=== PATIENT | male | born 1970 | race Asian ===

== ENCOUNTER → 2016-10-15 06:12 | Day surgery (SDC) | payer BC ==
--- NOTE | 2016-10-01 08:03 | HP ---
HISTORY AND PHYSICAL: DATE OF ADMISSION/SURGERY: 10/22/16 [facility] SURGEON: Maki Singh MD (DICTATED BY JANIA HARO) PROCEDURE: Right total knee arthroscopy with possible lateral meniscectomy, possible chondroplasty, possible synovectomy. CHIEF COMPLAINT: Right knee pain. HISTORY OF PRESENT ILLNESS: Mr. Rodriguez is a 46-year-old gentleman with continued complaints of right knee pain. An MRI shows a root tear of the posterior horn of the lateral meniscus as well as the chronic ACL tear, and degenerative osteoarthritis. He would like to proceed with right knee arthroscopy with partial lateral meniscectomy, possible chondroplasty, and possible synovectomy. Surgery is scheduled for 10/22/[address] Singh. PAST MEDICAL HISTORY: Denies. PAST SURGICAL HISTORY: Right knee arthroscopy. CURRENT MEDICATIONS: None. ALLERGIES: None. FAMILY HISTORY: Denies. SOCIAL HISTORY: He is a 46-year-old gentleman. He is . He works as a auto assembly line. He smokes two to three cigarettes a day. He denies use of drugs, uses occasional alcohol. REVIEW OF SYSTEMS: A complete 14-point review of systems was reviewed with the patient and was all negative and noncontributory. PHYSICAL EXAMINATION GENERAL: He is well developed, well nourished. He is in no acute distress. VITAL SIGNS: He stands 5 feet 3 inches tall, weighs 150 pounds. His blood pressure is 102/79, his heart rate is 72. HEENT: Normocephalic, atraumatic. NECK: Supple. No palpable lymph nodes. Trachea is midline. PULMONARY: The lungs are clear to auscultation bilaterally. CARDIO: Regular rate and rhythm. Strong S1 and S2. ABDOMEN: Soft, nontender, and nondistended. MUSCULOSKELETAL: Right lower extremity skin is intact. There are no open wounds or abrasions. He has some tenderness over the lateral right knee. He has got full range of motion. His lower extremity muscle group strengths are intact at 5/5. He has 2+ dorsalis pedis pulses and intact sensation. NEUROLOGIC: He is alert and oriented x3. Cranial nerves II through XII are intact. ASSESSMENT AND PLAN: Mr. Rodriguez is a 46-year-old gentleman with complaints of right knee pain. He is elected to proceed with right knee arthroscopy with partial lateral meniscectomy, possible chondroplasty, possible synovectomy and the surgery is scheduled for 10/22/[address] Singh discussed the risks and benefits of the surgery at today's visit and all of his questions were answered. He will follow up with Dr. Singh 2 weeks after the surgery. JANIA HARO [id number]/[facility] #: [id number] [facility]ITALQu[facility]
[~2016-10-15 06:12] MED LIST: Buffered Lidocaine 0.9% SYRIN* 5 ML/SYR SYRINGE ONE; Bupivacaine 0.5% SDV PF* 30 ML VIAL ONE; Dexamethasone IV* 4 MG/ML 1 ML (4 MG) ONE; EPHEDrine (Pressors)* 50 MG/ML VIAL ONE; EPINEPHrine AMP 1 MG/ML ONE; Famotidine IV* 10 MG/ML 2 ML (20 mg) IV ONE; Famotidine IV* 10 MG/ML 2 ML (20 mg) ONE; HYDROmorphone* 1 MG/ML 1 ML SYR IV PRN; KETAMINE HCL* 50 MG/ML 10 ML VIAL ONE; Ketorolac INJ* 30 MG/ML 1 ML VIAL ONE; Lidocaine 2% PF * 5 ML VIAL ONE; Metoclopramide TAB* 10 MG ONE; Metoclopramide TAB* 10 MG PO ONE; Midazolam* 1 MG/ML 5 ML VIAL (5 MG) ONE; Morphine PF AMP (0.5MG/ML)* 5 MG/10 ML AMP ONE; Ondansetron INJ* 2 MG/ML VIAL IV PRN; Ondansetron INJ* 2 MG/ML VIAL ONE; Propofol* 10 MG/ML 20 ML BTL IV PUSH ONE; ceFAZolin 2 GM PREMIX(*) 2 GM/50 ML BAG IVPB ONE; fentaNYL* 50 MCG/ML 2 ML VIAL (100 MCG VIAL) IV PRN; fentaNYL* 50 MCG/ML 2 ML VIAL (100 MCG VIAL) ONE; methylPREDNISolone ACETATE 80* 80 MG/ML 1 ML VIAL ONE; oxyCODONE/Acetamin 5/325 MG* TAB PO PRN
[2016-10-15 10:26] VITALS: BP 124/77
--- NOTE | 2016-10-16 08:43 | OP ---
DATE OF OPERATION: 10/15/16 - [facility] DATE OF : 68 SURGEON: Maki Singh MD CONTROL PANEL OPERATOR CRUDE UNIT: JANIA Phipps. Ms. Mcneal did help throughout the procedure with preparation of the leg, wound retraction, manipulation of the knee, and wound closure. ANESTHESIOLOGIST: Dr. Yadav. ANESTHESIA: General. PRE-OP DIAGNOSES: Right knee pain with osteoarthritis, lateral meniscal tear. POST-OP DIAGNOSES: Right knee medial meniscal tear, lateral meniscal tear, anterior synovitis, and moderate arthritis in the lateral and patellofemoral compartments. OPERATIVE PROCEDURE: Right knee arthroscopy with partial medial meniscectomy, partial lateral meniscectomy, anterior synovectomy, and lateral chondroplasty. INDICATIONS: Mr. Rodriguez is a 46-year-old gentleman with chronic right knee pain. He has been diagnosed with [id number] osteoarthritis in the past. He had continued pain and decreased quality of life despite conservative treatment with intraarticular injection and physical therapy. An MRI was ordered due to meniscal- type symptoms. He was noted to have a posterior root tear along the lateral meniscus. The patient continued conservative treatment, but his pain was not relieved. He elected to undergo right knee arthroscopy with partial meniscectomy, possible chondroplasty, possible synovectomy. Informed consent was obtained from the patient. He understood the risks of surgery included but were not limited to bleeding, infection, damage to nearby structures, continued pain, need for further surgery, stroke, heart attack, blood clot, and . He wished to proceed. COMPLICATIONS: None. EBL: Less than 25 cc. SPECIMEN: None. INTRAOPERATIVE FINDINGS: Intraoperatively, the patient was noted to have a radial tear in the posterior one-half of the medial meniscus involving the white -red zone. He was noted to have a radial-type tear along the posterolateral horn of the lateral meniscus. He was noted to have large amounts of anterior synovitis. Arthritic changes were noted mainly in the lateral and patellofemoral compartments. These were grade 3 and 4 Outerbridge cartilage changes with a small amount of exposed subchondral bone and cartilage flapping. DESCRIPTION OF PROCEDURE: Mr. Rodriguez was identified in the preanesthesia unit. His right lower extremity was marked as the correct operative side. Informed consent was signed and placed in the chart. The patient was taken to the operating room and placed under general anesthesia without difficulty. Right lower extremity was prepped and draped in the usual sterile fashion. Preop time -out was made to correctly identified the patient's side and site. Appropriate perioperative antibiotics were given within 1 hour of incision. A standard 0.5-cm anterolateral portal incision was made with a 15-blade. The trocar was introduced. As soon as the light and water sources were turned on, there was immediate visualization of the knee joint. It was noted that there were several small pieces of cartilage floating in the joint fluid. The suprapatellar pouch had no obvious abnormality. Patello-femoral compartment showed grade 3 and 4 Outerbridge cartilage changes involving the medial and lateral patellar facet. There was cartilage flapping as well as exposed subchondral bone. Medial gutter showed a large of amount of the anterior synovitis and fibrous tissue. Medial gutter showed no obvious loose body. ACL was absent. PCL was intact. Medial compartment showed minimal degenerative changes. There was a radial-type tear involving the posterior one-half of the medial meniscus. The knee was placed in the figure-of-4 position. Significant amount of grade 3 and 4 Outerbridge cartilage changes were noted along the lateral femoral condyle. A radial-type tear was noted along the posterolateral root of the lateral meniscus. Grade 3 and 4 cartilage changes were noted along the lateral tibial plateau. Lateral gutter had no obvious loose body or plica. Under direct visualization, the medial portal incision was made with a 15- blade. A second tour of the knee joint was performed. No additional findings were noted. Shaver and radiofrequency ablation wand were first used to perform anterior synovectomy. A large amount of inflammatory soft tissue was cleared and there was better visualization of the joint. The inflammatory tissue which impinged with patellofemoral range of motion was also excised. A straight biter was used to perform partial medial meniscectomy in the white-red zone. This was a radial tear involving the posterior one-half of the medial meniscus in the white -red zone. A smooth border was obtained. Further probing of the meniscus showed no additional tears. The knee was placed in the figure-of-4 position. Radiofrequency ablation wand was used to smooth some cartilage flapping. This was done in a conservative fashion. Straight biter and shaver were then used to perform partial lateral meniscectomy along the root of the lateral meniscus and posterolateral corner. The radial tear was excised carefully. Further probing showed no additional tears along the lateral meniscus. This was performed in the white-white and white-red zone. At this time, the knee was copiously irrigated. The shaver was introduced into the suprapatellar pouch and the knee was thoroughly irrigated with multiple liters of sterile saline. This was performed until there was no further cartilage fragments in the joint fluid. All instruments were carefully removed. The incisions were closed using interrupted 3-0 nylon suture. An intraarticular injection of 80 mg of Depo-Medrol and 6 cc of 0.25% Marcaine was placed in the knee joint. Sterile Xeroform, 4x4s, and Webril were placed over the incisions. Shola wrap and cold pack were placed over this. The patient's anesthesia was reversed without difficulty. He was taken to the PACU in stable condition. Intended weightbearing will be weightbearing as tolerated. Intended DVT prophylaxis will be Coumadin with a Lovenox bridge. [id number]/[facility] #: [id number] MIKAEL
== END | disposition home or self-care (01) ==
LOC: OR 06:12
PROVIDERS: ATTEND Orthopaedic Surgery Adult Reconstructive Orthopaedic Surgery
DX: S83.281A Other tear of lateral meniscus, current injury, right knee, initial encounter (principal); S83.241A Other tear of medial meniscus, current injury, right knee, initial encounter; M25.561 Pain in right knee; M17.0 Bilateral primary osteoarthritis of knee; X58.XXXA Exposure to other specified factors, initial encounter; F17.200 Nicotine dependence, unspecified, uncomplicated
CPT/HCPCS: A9270-GY; J0171; J0690; J1040; J1100; J1885; J2250; J2405; J2704; J3010

== ENCOUNTER 2016-10-20 11:26 | Emergency (ER) | payer BC ==
[2016-10-20 11:44] VITALS: BP 122/82
--- NOTE | 2016-10-20 11:54 | UC ---
Shortness of Breath HPI - HPI Summary HPI Summary: complaint of shortness of breath that started 2-3 days ago SOB has worsened over the last day harder to breath when he is ambulating frequent heartburn and chest burning ,ocassional non productive cough recent surgery on right knee- arthroscopic surgery 10/15/16 to fix torn meniscus was taking percocet for pain but stopped it last night d/t constipation no BM for 6 days took senna this morning without relief at this time denies fever - History of Current Complaint Hx Obtained From: Patient Associated Signs & Symptoms: Positive: Cough (Nonproductive) Related History: Recent Trauma - Risk Factors Pulmonary Embolism: Recent Surgery, Smoking Cardiac: Smoking Pseudomonas: Negative <Isabela Carney - Last Filed: 10/20/16 12:18> <May Blanc - Last Filed: 10/20/16 12:30> - History of Current Complaint Chief Complaint: UCChestPain Stated Complaint: HEART BURN SOB Time Seen by Provider: 10/20/16 11:46 - Allergy/Home Medications Allergies/Adverse Reactions: Allergies Allergy/AdvReac Type Severity Reaction Status Date / Time grass Allergy Sneezing Uncoded 10/20/16 11:47 Home Medications: Home Medications Aspirin [Ecotrin 325 MG] 1 tab PO DAILY 10/20/16 [History Confirmed 10/20/16] Docusate Sodium [Colace] 2 tab PO DAILY PRN 10/20/16 [History Confirmed 10/20/16 ] Ibuprofen [Advil] 600 mg PO Q6HR PRN 10/20/16 [History Confirmed 10/20/16] oxyCODONE/Acetamin 5/325 MG* [Percocet 5/325 TAB*] 1 tab PO Q4HR PRN 10/20/16 [ History Confirmed 10/20/16] PMH/Surg Hx/FS Hx/Imm Hx Previously Healthy: No - righ arthroscopic surgery 10/15/16 GI/ History: Gastroesophageal Reflux - Surgical History Surgical History: Yes Surgery Procedure, Year, and Place: right Knee surgery x 2 - Family History Known Family History: Positive: Cardiac Disease, Hypertension Negative: Diabetes - Social History Occupation: Employed Full-time Lives: With Family Alcohol Use: Rare Alcohol Amount: once a year 1-2 drinks Substance Use Type: None Smoking Status (MU): Light Every Day Tobacco Smoker Type: Cigarettes Amount Used/How Often: 2-3 cig./day Cessation Counseling: Patient Advised to Stop <Isabela Carney - Last Filed: 10/20/16 12:18> Review of Systems Constitutional: Negative Skin: Negative Eyes: Negative ENT: Negative Respiratory: Shortness Of Breath Cardiovascular: Chest Pain Gastrointestinal: Abdominal Pain Genitourinary: Negative Motor: Negative Neurovascular: Negative Musculoskeletal: Negative Neurological: Negative Psychological: Negative All Other Systems Reviewed And Are Negative: Yes <Isabela Carney - Last Filed: 10/20/16 12:18> Physical Exam Triage Information Reviewed: Yes Appearance: Well-Appearing, No Pain Distress, Well-Nourished Vital Signs: Initial Vital Signs Temp 99.4 F 10/20/16 11:39 Pulse 82 10/20/16 11:39 Resp 18 10/20/16 11:39 BP 122/82 10/20/16 11:39 Pulse Ox 99 10/20/16 11:39 Vital Signs Reviewed: Yes Eyes: Positive: Conjunctiva Clear ENT: Positive: Pharynx normal, TMs normal Neck: Positive: Supple, No Lymphadenopathy Respiratory: Positive: Lungs clear, Normal breath sounds, No respiratory distress, No accessory muscle use Cardiovascular: Positive: RRR, No Murmur, Pulses Normal, Brisk Capillary Refill Abdomen Description: Positive: Nontender, No Organomegaly, Soft, Distended. Negative: Guarding Bowel Sounds: Positive: Present Musculoskeletal: Positive: Other: - RLE- wrapped in dressing Neurological: Positive: Alert Psychological Exam: Normal Skin Exam: Normal <Isabela Carney - Last Filed: 10/20/16 12:18> Vital Signs: Initial Vital Signs Temp 99.4 F 10/20/16 11:39 Pulse 82 10/20/16 11:39 Resp 18 10/20/16 11:39 BP 122/82 10/20/16 11:39 Pulse Ox 99 10/20/16 11:39 <May Blanc - Last Filed: 10/20/16 12:30> Shortness of Breath Dx - Course Course Of Treatment: exam compoleted. EKG shows inverted Twave in lead 3. d/t shortness of breath 6 days following right knee surgery and abnormal EKG will send to higher level of care for rule out PE. constipation, heartburn at the current time. pt refuses ambulance transfer- last percocet was last night so he will drive himself - Differential Dx/Diagnosis Differential Diagnosis/HQI/PQRI: FL, Pulmonary Embolism Provider Diagnoses: shortness of breath - Physician Notification/Consults Discussed Patient Care With: Dr May Blanc Time Discussed With Above Provider: 12:13 Instructed by Provider To: Transfer <Isabela Carney - Last Filed: 10/20/16 12:18> Discharge <Isabela Carney - Last Filed: 10/20/16 12:18> <May Blanc - Last Filed: 10/20/16 12:30> - Discharge Plan Condition: Stable Disposition: AGAINST MEDICAL ADVICE Referrals: Brian Lyles MD [Primary Care Provider] - Attestation Statement User Type: Provider - I was available for consult. This patient was seen by the CHANG. The patient was not presented to, seen by, or examined by me. -Lisa <May Blanc - Last Filed: 10/20/16 12:30>
== END 2016-10-20 12:21 | disposition left against medical advice (07) ==
LOC: UCEAST 11:26
DX: R06.02 Shortness of breath (principal); R94.31 Abnormal electrocardiogram [ECG] [EKG]; Z98.890 Other specified postprocedural states
CPT/HCPCS: 93005; 99212; G0463

== ENCOUNTER 2016-10-20 14:30 | Emergency (ER) | payer BC ==
[2016-10-20] MEDS ORDERED: Aspirin Low Dose CHEW TAB* 81 MG PO ONE (15:36)
--- NOTE | 2016-10-20 15:55 | RAD ---
INDICATION: Chest pain. COMPARISON: Comparison is made with a prior study from September 15, 2013. TECHNIQUE: A portable view of the chest was obtained. FINDINGS: Cardiac and mediastinal contours appear to be within normal limits. The lungs are clear. No pleural effusion is seen. IMPRESSION: NO EVIDENCE FOR ACUTE DISEASE.
[2016-10-20 16:46] LABS: Hematocrit 49 % (42-52); Hemoglobin 15.7 g/dl (14.0-18.0); Mean Corpuscular HGB Conc 32 g/dl (31-36); Mean Corpuscular Hemoglobin 28 pg (27-31); Mean Corpuscular Volume 87 fL (80-94); Mean Platelet Volume 7 um3 (7.4-10.4); Red Blood Count 5.64 10^6/ul (4.0-5.4); Red Cell Distribution Width 14 % (10.5-15); White Blood Count 14.2 10^3/ul (3.5-10.8)
[2016-10-20 17:04] LABS: Troponin I 0.01 ng/mL (<0.04)
[2016-10-20 17:28] LABS: Albumin 4.1 g/dL (3.2-5.2); BUN/Creatinine Ratio 22.8 (8-20); Calcium 9.2 mg/dL (8.6-10.3); EGFR African American 113.4 (>60); EGFR Non-African American 88.2 (>60); Globulin 2.6 g/dL (2-4); Potassium 4.3 mmol/L (3.5-5.0); Total Bilirubin 0.6 mg/dL (0.2-1.0); Total Protein 6.7 g/dL (6.4-8.9)
[2016-10-20] MEDS ORDERED: Iohexol 350* (CONTRAST) 500 ML MDV IV ONE (17:34)
--- NOTE | 2016-10-20 17:39 | RAD ---
INDICATION: Abdominal pain, constipation. COMPARISON: Comparison is made with a prior CT of the abdomen and pelvis from July 28, 2013. TECHNIQUE: Frontal supine films of the abdomen were obtained. FINDINGS: The small bowel and colon appear nondistended. There is a moderate amount of retained feces within the ascending and transverse colon. No significant abnormal calcifications are seen. IMPRESSION: NO EVIDENCE FOR OBSTRUCTION.
--- NOTE | 2016-10-20 18:20 | RAD ---
INDICATION: Pleuritic chest pain history of recent knee surgery. COMPARISON: Comparison is made with a prior CT of the chest from July 29, 2009 and a prior chest x-ray study from October 20, 2016. TECHNIQUE: A CT angiogram of the chest was performed with intravenous following intravenous injection of 80 ml of Omnipaque 350 nonionic contrast. Contiguous axial sections were obtained from the lung apices through the lung bases. Images were reconstructed in the coronal and sagittal planes. FINDINGS: There is relatively homogeneous opacification of the pulmonary arteries. No intraluminal filling defect or pulmonary embolism is seen. The heart is within normal limits in size. No pericardial effusion is present. The thoracic aorta is normal in caliber and demonstrates homogeneous contrast opacification. No significant enlarged mediastinal or hilar lymph nodes are seen. There is mild dependent bilateral lower lobe subsegmental atelectasis. The lungs are otherwise clear. No pleural effusion or pneumothorax is present. No significant focal osseous abnormality is seen. IMPRESSION: NO EVIDENCE FOR PULMONARY EMBOLISM.
[2016-10-20] MEDS ORDERED: Magnesium Hydroxide LIQ* 30 ML UDC PO ONE (20:30)
[2016-10-20] MEDS ORDERED: Magnesium CITRATE* 300 ML BTL PO ONE (21:09)
[2016-10-20 21:40] VITALS: BP 119/79
--- NOTE | 2016-10-22 23:22 | ED ---
Stefan Thurston Rebecca, scribed for Heath Gaston MD on 10/20/16 at 1536 . Shortness of Breath - HPI Summary HPI Summary: Pt is a 46 y/o M who presents to ED c/o SOB. Sx began gradually a few days ago and have been intermittent since onset. SOB characterized as dyspnea at rest. Sx aggravated and alleviated by nothing with the pt reporting sx appear randomly. C/o pleuritic chest pain and diffuse abdominal pain, both of which are only present upon inspiration. Additionally c/o constipation and increased urinary frequency s/p recent surgery. Denies cough, fever, chills, diaphoresis, melena. SHx current every day light smoker. R knee surgery to treat arthritis 6 days ago. Reports he has been slightly active s/p surgery and is taking Percocet , Ibuprofen and ASA to treat pain. No PMHx DVT. - History of Current Complaint Chief Complaint: EDShortnessOfBreath Time Seen by Provider: 10/20/16 15:34 Hx Obtained From: Patient Onset/Duration: Gradual Onset Timing: Intermittent Episodes Lasting: Current Severity: Mild Dyspnea At: Rest Aggrevating Factors: Nothing Alleviating Factors: Nothing Associated Signs & Symptoms: Chest Pain Unrelated to Cough - chest pain with inspiration - Allergy/Home Medications Allergies/Adverse Reactions: Allergies Allergy/AdvReac Type Severity Reaction Status Date / Time grass Allergy Sneezing Uncoded 10/20/16 16:31 PMH/Surg Hx/FS Hx/Imm Hx Endocrine/Hematology History: Denies: Hx Diabetes, Hx Thyroid Disease Cardiovascular History: Reports: Other Cardiovascular Problems/Disorders - "increased heart rate, a few yrs ago", resolved, Denies: Hx Deep Vein Thrombosis, Hx Hypertension, Hx Pacemaker/ICD Respiratory History: Denies: Hx Asthma, Hx Chronic Obstructive Pulmonary Disease (COPD) GI History: Reports: Hx Ulcer - peptic ulcer 2013, healed History: Denies: Hx Renal Disease Sensory History: Denies: Hx Contacts or Glasses, Hx Hearing Aid Opthamlomology History: Denies: Hx Contacts or Glasses Psychiatric History: Denies: Hx Panic Disorder - Surgical History Surgery Procedure, Year, and Place: right Knee surgery x 2 Hx Anesthesia Reactions: No Infectious Disease History: No Infectious Disease History: Denies: Hx Hepatitis, Hx Human Immunodeficiency Virus (HIV), History Other Infectious Disease, Traveled Outside the [place] in Last 30 Days - Family History Known Family History: Positive: Cardiac Disease, Hypertension Negative: Diabetes - Social History Alcohol Use: Rare Alcohol Amount: once a year 1-2 drinks Substance Use Type: Reports: None Smoking Status (MU): Light Every Day Tobacco Smoker Type: Cigarettes Amount Used/How Often: 2-3 cig./day Review of Systems Negative: Fever, Chills, Skin Diaphoresis Negative: Erythema Negative: Sore Throat Positive: Chest Pain - pleuritic Negative: Shortness Of Breath, Cough Positive: Abdominal Pain - diffuse, upon inspiration. Negative: Vomiting, Nausea Positive: other - Negative melena. Negative: dysuria, hematuria Negative: Myalgia, Edema Negative: Rash Neurological: Other - Negative dizziness All Other Systems Reviewed And Are Negative: Yes Physical Exam - Summary Physical Exam Summary: Constitutional: Well-developed, Well-nourished, Alert. (-) Distressed Skin: Warm, Dry HENT: Normocephalic; Atraumatic Eyes: Conjunctiva normal Neck: Musculoskeletal ROM normal neck. (-) JVD, (-) Stridor, (-) Tracheal deviation Cardio: Rhythm regular, rate normal, Heart sounds normal; Intact distal pulses; The pedal pulses are 2+ and symmetric. Radial pulses are 2+ and symmetric. (-) Murmur Pulmonary/Chest wall: Effort normal. (-) Respiratory distress, (-) Wheezes, (-) Rales Abd: Soft, (-) Distension, (-) Guarding, (-) Rebound, Diffusely mildly tender Musculoskeletal: (-) Edema Lymph: (-) Cervical adenopathy Neuro: Alert, Oriented x3 Psych: Mood and affect Normal Triage Information Reviewed: Yes Vital Signs On Initial Exam: Initial Vitals Temp Pulse Resp BP Pulse Ox 97.2 F 85 19 119/73 100 10/20/16 14:33 10/20/16 14:33 10/20/16 14:33 10/20/16 14:33 10/20/16 14:33 Vital Signs Reviewed: Yes Diagnostics - Vital Signs Vital Signs Temp Pulse Resp BP Pulse Ox 10/20/16 14:36 97.2 F 85 19 119/73 100 10/20/16 14:33 97.2 F 85 19 119/73 100 - Laboratory Result Diagrams: 10/20/16 16:20 10/20/16 16:20 Lab Statement: Any lab studies that have been ordered have been reviewed, and results considered in the medical decision making process. - Radiology CXR Xray Interpretation: No Acute Changes - NO EVIDENCE FOR ACUTE DISEASE. Radiology Interpretation Completed By: Radiologist Abdomen KUB Xray Interpretation: No Acute Changes - NO EVIDENCE OF OBSTRUCTION Radiology Interpretation Completed By: Radiologist - CT CTA Chest CT Interpretation: No Acute Changes - No evidence for pulmonary embolism. CT Interpretation Completed By: Radiologist - EKG 1605 Cardiac Rate: NL - 75 bpm EKG Rhythm: Sinus Rhythm Ectopy: None EKG Interpretation: No STEMI Re-Evaluation - Re-Evaluation First Eval Re-Evaluation Time: 21:09 Change: Improved Comment: Pt is feeling significantly improved. All complaints are resolved. Course/Dx - Course Assessment/Plan: Pt is a 46 y/o M with a CC of intermittent SOB (dyspnea at rest ) for the last few days. C/o pleuritic chest pain and diffuse abdominal pain, both of which are only present upon inspiration. Additionally c/o constipation and increased urinary frequency. Denies cough, fever, chills, diaphoresis, melena. Pt is 6 days post-op from R knee surgeyr and is currently taking ASA, Ibuprofen and Percocet for the pain. EKG, Chest/Thorax CTA, Abdomen XR and CXR reveal no acute findings. Troponins 0.01 and 0.00, respectively. Glucose 217. WBC 14.2. It is suspected that his elevated WBC is due to recent surgery. Pt will be D/C to home with Dx of pleuritic chest pain and constipation and a follow up with his PCP. - Diagnoses Provider Diagnoses: Constipation, Pleuritic chest pain Discharge - Discharge Plan Condition: Stable Disposition: HOME Patient Education Materials: Constipation (ED), Chest Pain (ED) Referrals: Brian Lyles MD [Primary Care Provider] - 3 Days (Follow up with your Primary Care Physician in the next few days. ) Additional Instructions: RETURN TO THE EMERGENCY DEPARTMENT FOR CHANGING OR WORSENING SYMPTOMS The documentation as recorded by the Stefan elkins Rebecca accurately reflects the service I personally performed and the decisions made by , Heath Gaston MD.
== END 2016-10-20 21:38 | disposition home or self-care (01) ==
LOC: ED 14:30
DX: K59.00 Constipation, unspecified (principal); R07.9 Chest pain, unspecified; R06.02 Shortness of breath; R05 Cough
CPT/HCPCS: 36415; 71010; 71275; 74000; 80053; 83605; 84484; 85025; 93005; 99283; Q9967

== ENCOUNTER 2017-10-12 15:24 | Emergency (ER) | payer BC, OTHER ==
[2017-10-12] MEDS ORDERED: Acetaminophen TAB* 325 MG PO ONE (16:02)
--- NOTE | 2017-10-12 16:34 | UC ---
UC General HPI - HPI Summary HPI Summary: Patient presents to urgent care with reports of body aches, fevers to a Tmax of 102.4, headache, and fatigue progressive over 2 days. Patient denies cough, sinus congestion, or ear pain. No nausea or vomiting. Patient denies diarrhea. Patient does report decreased appetite. Patient has intermittently taken ibuprofen with improvement of his fevers but "doesn't last." She denies any illness at home or colleagues. No rash. No travel. Patient states he is just "achy." No tick exposures Patient's medications reviewed this visit. - History of Current Complaint Chief Complaint: UCGeneralIllness Stated Complaint: FEVER,JOINT PAIN Time Seen by Provider: 10/12/17 16:27 Hx Obtained From: Patient, Family/Central Supply Supervisor Onset/Duration: Gradual Onset, Lasting Days Timing: Constant Onset Severity: Mild Current Severity: Mild Pain Intensity: 3 Associated Signs & Symptoms: Positive: Fever, Headache, Nausea - Allergy/Home Medications Allergies/Adverse Reactions: Allergies Allergy/AdvReac Type Severity Reaction Status Date / Time grass Allergy Sneezing Uncoded 10/14/17 12:11 Home Medications: Home Medications Acetaminophen [Tylenol] 2 tab PO BID 10/12/17 [History] PMH/Surg Hx/FS Hx/Imm Hx Previously Healthy: Yes - Surgical History Surgical History: Yes Surgery Procedure, Year, and Place: right Knee surgery x 2 - Family History Known Family History: Positive: Cardiac Disease, Hypertension Negative: Diabetes - Social History Occupation: Employed Full-time Lives: With Family Alcohol Use: Rare Alcohol Amount: once a year 1-2 drinks Substance Use Type: None Smoking Status (MU): Light Every Day Tobacco Smoker Type: Cigarettes Amount Used/How Often: 2-3 cig./day Review of Systems Constitutional: Fever, Fatigue Neurovascular: Negative Neurological: Headache All Other Systems Reviewed And Are Negative: No Physical Exam - Summary Physical Exam Summary: Vital Signs Reviewed: Yes A+Ox3, tired appearing Eyes: Conjunctiva Clear, INDERJIT. EOM intact and full ENT: Hearing grossly normal TM x 2 clear, mmoist, uvula midline, no exudate, no erythema Neck: Positive: Supple Respiratory: Positive: No respiratory distress, No accessory muscle use + CTA throughout no w/r Cardiovascular: RRR nl s1, s2 no m/r CBT <2 sec Musculoskeletal Exam: DÍAZ x 4 without difficulty Strength Intact, ROM Intact Neurological: Positive: Alert, + sensation throughout Psychological: Positive: Normal Response To Family Skin: Positive: no rash,, no ecchymosis Triage Information Reviewed: Yes Vital Signs: Initial Vital Signs Temp 101.7 F 10/12/17 15:32 Pulse 96 10/12/17 15:32 Resp 16 10/12/17 15:32 BP 131/80 10/12/17 15:32 Pulse Ox 98 10/12/17 15:32 Re-Evaluation - Re-Evaluation First Eval Change: Improved - Pt reports MATHIAS improving, temp improving myagligia improved drinking water d/w pt supportive care motrin/apap rest, hydrate, secretion precaution, return precaution. work notes Course/Dx - Course Course Of Treatment: pt with myalgia, body aches, fatigue and headache x 2 days VSS except with noted fever. will give antipytretic, influenza, check urine for ketone. reassess. suspect virall syndrome - Differential Dx - Multi-Symptom Provider Diagnoses: febrile illness. myalgia Discharge - Sign-Out/Discharge Documenting (check all that apply): Discharge/Admit/Transfer - Discharge Plan Condition: Stable Disposition: HOME Patient Education Materials: Fever in Adults (ED), Musculoskeletal Pain (ED) Forms: *Work Release Referrals: Brian Lyles MD [Primary Care Provider] - Additional Instructions: - Stay well hydrated. Drink plenty of non-alcoholic, non-caffinated beverages. - Alternate ibuprofen (Advil, Motrin) 600mg and Tylenol every 3 hours for pain or fever. Take with food. Do NOT take for more than 4-5 days. - These infections are spread by secretions - do NOT share eating or drinking utensils - clean items you share with other people such as cell phones, computer mouse, TV remote, computer tablets,etc. Once you start to feel better, change your toothbrush and your pillowcase. - get plenty of restful sleep - contact your doctor to schedule a follow-up appointment this week. If you develop uncontrolled fevers, uncontrolled pain, rash, vision changes, headache, abdominal pain or ANY other questions or concerns it is recommended you go to directly to the emergency department for further evaluation and treatment. - Billing Disposition and Condition Condition: STABLE Disposition: HOME
[2017-10-12 17:36] VITALS: BP 0/0
== END 2017-10-12 18:02 | disposition home or self-care (01) ==
LOC: UCEAST 15:24
DX: R50.9 Fever, unspecified (principal); M79.1 Myalgia; R53.83 Other fatigue; R11.0 Nausea; F17.210 Nicotine dependence, cigarettes, uncomplicated
CPT/HCPCS: 81003; 87502; 99212; A9270-GY; G0463

== ENCOUNTER 2017-10-14 10:52 | Emergency (ER) | payer OTHER ==
[2017-10-14 12:11] VITALS: BP 124/75
--- NOTE | 2017-10-14 12:14 | UC ---
UC General HPI - HPI Summary HPI Summary: 47 yo male presents asking for return to work note. He tells me that he was seen on 10/12...two days ago...for fever and body aches. Was dx'd with viral illness and advised to take ibuprofen/tylenol and was given 2 days off work. Currently he feels fine and is much improved from 2 days ago. He wishes to return to work without restrictions. Denies fever, chills, cough, SOB, chest pain, abdominal pain, n/v/d/c. - History of Current Complaint Chief Complaint: UCGeneralIllness Stated Complaint: WORK NOTE Time Seen by Provider: 10/14/17 12:14 Hx Obtained From: Patient Current Severity: None Pain Intensity: 0 - Allergy/Home Medications Allergies/Adverse Reactions: Allergies Allergy/AdvReac Type Severity Reaction Status Date / Time grass Allergy Sneezing Uncoded 10/14/17 12:11 PMH/Surg Hx/FS Hx/Imm Hx - Additional Past Medical History Additional PMH: None Previously Healthy: Yes - Surgical History Surgical History: Yes Surgery Procedure, Year, and Place: right Knee surgery x 2 - Family History Known Family History: Positive: Cardiac Disease, Hypertension Negative: Diabetes - Social History Occupation: Employed Full-time Lives: With Family Alcohol Use: Rare Alcohol Amount: once a year 1-2 drinks Substance Use Type: None Smoking Status (MU): Light Every Day Tobacco Smoker Type: Cigarettes Amount Used/How Often: 2-3 cig./day - Immunization History Most Recent Tetanus Shot: no Review of Systems Constitutional: Negative Skin: Negative Eyes: Negative ENT: Negative Respiratory: Negative Cardiovascular: Negative Gastrointestinal: Negative Neurovascular: Negative Musculoskeletal: Negative Neurological: Negative Psychological: Negative All Other Systems Reviewed And Are Negative: Yes Physical Exam - Summary Physical Exam Summary: GENERAL: NAD. WDWN. No pain distress. SKIN: No rashes, sores, ulcers, masses, lesions. HEENT: Head: AT/NC Eyes: PERRLA. EOM intact. Conjunctiva clear without inflammation or discharge. Ears: Hearing grossly normal. TMs intact, no bulging, erythema, or edema. Nose: Nasal mucosa pink and moist. NTTP maxillary and frontal sinus. Throat: Posterior oropharynx without exudates, erythema, or tonsillar enlargement. Uvula midline. NECK: Supple. Nontender. No lymphadenopathy. CHEST: CTAB. No r/r/w. No accessory muscle use. Breathing comfortably and in no distress. CV: RRR. Without m/r/g. Pulses intact. Brisk cap refill. ABDOMEN: Soft. NTTP. No distention or guarding., No organomegaly. No CVA tenderness. Bowel sounds present MSK: FROM and 5/5 strength throughout. No edema. NEURO: Alert. CN II-XII grossly intact. PSYCH: Age appropriate behavior. Triage Information Reviewed: Yes Vital Signs: Initial Vital Signs Temp 98.8 F 10/14/17 12:08 Pulse 74 10/14/17 12:08 Resp 18 10/14/17 12:08 BP 124/75 10/14/17 12:08 Pulse Ox 99 10/14/17 12:08 Course/Dx - Course Course Of Treatment: Afebrile and is feeling well today. Normal exam. RTW without restrictions - Differential Dx - Multi-Symptom Provider Diagnoses: Viral illness Discharge - Sign-Out/Discharge Documenting (check all that apply): Discharge/Admit/Transfer - Discharge Plan Condition: Stable Disposition: HOME Forms: *Work Release Referrals: Brian Lyles MD [Primary Care Provider] - Additional Instructions: If you develop a fever, shortness of breath, chest pain, new or worsening symptoms - please call your PCP or go to the ED. - Billing Disposition and Condition Condition: STABLE Disposition: HOME
== END 2017-10-14 12:24 | disposition home or self-care (01) ==
LOC: UCEAST 10:52
DX: B34.9 Viral infection, unspecified (principal); Z82.49 Family history of ischemic heart disease and other diseases of the circulatory system; F17.210 Nicotine dependence, cigarettes, uncomplicated
CPT/HCPCS: 99212; G0463

== ENCOUNTER 2018-08-11 06:11 | Day surgery (SDC) | payer OTHER ==
--- NOTE | 2018-08-08 09:41 | HP ---
HISTORY AND PHYSICAL: DATE OF SURGERY: 08/11/18 DATE OF OFFICE VISIT: 08/05/18 SURGEON: Maki Singh MD * (DICTATED BY JANIA HARO) PROCEDURE: Left knee arthroscopy with partial medial and lateral meniscectomies , possible chondroplasty, possible synovectomy, and possible plica excision. CHIEF COMPLAINT: Left knee pain. HISTORY OF PRESENT ILLNESS: Mr. Rodriguez is a 48-year-old gentleman with continued complaints of left knee pain. He has failed conservative treatment and elected to proceed with the left knee arthroscopy. PAST MEDICAL HISTORY: Denies. PAST SURGICAL HISTORY: Bilateral knee arthroscopies. CURRENT MEDICATIONS: None. ALLERGIES: None. FAMILY HISTORY: Denies. SOCIAL HISTORY: A 48-year-old lives with his . He smokes approximately 3 cigarettes a day. Denies use of drugs or alcohol. REVIEW OF SYSTEMS: A complete 14-point review of systems was reviewed with the patient, all negative or noncontributory. He denies history of DVT, PE, hepatitis, HIV, or anesthesia problems. PHYSICAL EXAMINATION GENERAL: He is well developed, well nourished, in no acute distress. VITAL SIGNS: He stands 63 inches tall, weighs 146 pounds. His blood pressure is 114/79. His heart rate is 78. HEENT: Normocephalic, atraumatic. NECK: Supple, no palpable lymph nodes. PULMONARY: The lungs are clear to auscultation. CARDIO: Regular rate and rhythm. ABDOMEN: Soft, nontender, and nondistended. NEUROLOGICAL: He is alert and oriented x3. MUSCULOSKELETAL: Left lower extremity skin is intact. There are no open wounds or abrasions. There is a moderate effusion with positive Apley's and positive Luek's. Tender over the medial and lateral joint line. He is able to dorsiflex and plantarflex and has intact sensation. ASSESSMENT AND PLAN: Mr. Rodriguez is a 48-year-old gentleman with left knee pain. An MRI confirms medial and lateral meniscus tears. He has elected to proceed with the left knee arthroscopy with partial medial and lateral meniscectomies, possible chondroplasty, possible synovectomy, and possible plica excision. Surgery is scheduled for 08/11/[address] Singh discussed the risks and benefits of the surgery at today's visit and all of his questions were answered. He will follow up with Dr. Singh 2 weeks after the surgery. JANIA HARO [id number]/[facility] #: [id number] MTDQuentin
[~2018-08-11 06:11] MED LIST changes: -Buffered Lidocaine 0.9% SYRIN* 5 ML/SYR SYRINGE ONE; +Buffered Lidocaine 1% SYRIN* 1 ML/SYRINGE INTRADERM ONE; -Bupivacaine 0.5% SDV PF* 30 ML VIAL ONE; -Dexamethasone IV* 4 MG/ML 1 ML (4 MG) ONE; -EPHEDrine (Pressors)* 50 MG/ML VIAL ONE; -EPINEPHrine AMP 1 MG/ML ONE; -HYDROmorphone* 1 MG/ML 1 ML SYR IV PRN; -KETAMINE HCL* 50 MG/ML 10 ML VIAL ONE; -Ketorolac INJ* 30 MG/ML 1 ML VIAL ONE; +Lactated Ringers 1000 ML Bag* 1,000 ML IV SCH; -Lidocaine 2% PF * 5 ML VIAL ONE; -Metoclopramide TAB* 10 MG ONE; -Metoclopramide TAB* 10 MG PO ONE; -Midazolam* 1 MG/ML 5 ML VIAL (5 MG) ONE; -Morphine PF AMP (0.5MG/ML)* 5 MG/10 ML AMP ONE; -Ondansetron INJ* 2 MG/ML VIAL IV PRN; -Ondansetron INJ* 2 MG/ML VIAL ONE; -Propofol* 10 MG/ML 20 ML BTL IV PUSH ONE; -ceFAZolin 2 GM PREMIX(*) 2 GM/50 ML BAG IVPB ONE; +ceFAZolin 2 GM in NS PREMIX(*) 0 GM/0 ML BAG IVPB ONE; -fentaNYL* 50 MCG/ML 2 ML VIAL (100 MCG VIAL) IV PRN; -fentaNYL* 50 MCG/ML 2 ML VIAL (100 MCG VIAL) ONE; -methylPREDNISolone ACETATE 80* 80 MG/ML 1 ML VIAL ONE; -oxyCODONE/Acetamin 5/325 MG* TAB PO PRN
[2018-08-11] MEDS ORDERED: ceFAZolin 2 GM in NS PREMIX(*) 2 GM/100 ML BAG IVPB ONE (06:51)
[2018-08-11] MEDS ORDERED: Buffered Lidocaine 1% SYRIN* 1 ML/SYRINGE INTRADERM ONE (06:51)
[2018-08-11] MEDS ORDERED: Famotidine IV* 10 MG/ML 2 ML (20 mg) ONE (06:51)
[2018-08-11] MEDS ORDERED: methylPREDNISolone ACETATE 80* 80 MG/ML 1 ML VIAL ONE (07:01)
[2018-08-11] MEDS ORDERED: EPINEPHRINE 1 MG/ML 1 ML VIAL ONE (07:01)
[2018-08-11] MEDS ORDERED: ROPIVACAINE 5 MG/ML 30 ML BTL (0.5%) ONE (07:01)
[2018-08-11] MEDS ORDERED: fentaNYL* 50 MCG/ML 2 ML VIAL (100 MCG VIAL) ONE (07:12)
[2018-08-11] MEDS ORDERED: Propofol* 10 MG/ML 20 ML BTL ONE (07:12)
[2018-08-11] MEDS ORDERED: Lidocaine 2% MPF* 2 ML VIAL ONE (07:12)
[2018-08-11] MEDS ORDERED: Dexamethasone IV* 4 MG/ML 1 ML (4 MG) ONE (07:12)
[2018-08-11] MEDS ORDERED: Midazolam* 1 MG/ML 5 ML VIAL (5 MG) ONE (07:12)
[2018-08-11] MEDS ORDERED: Ondansetron INJ* 2 MG/ML VIAL ONE (07:12)
[2018-08-11] MEDS ORDERED: Naloxone* 0.4 MG/ML 1 ML VIAL IV PRN (07:22)
[2018-08-11] MEDS ORDERED: Ondansetron INJ* 2 MG/ML VIAL IV PRN (07:22)
[2018-08-11] MEDS ORDERED: fentaNYL* 50 MCG/ML 2 ML VIAL (100 MCG VIAL) IV PRN (07:22)
[2018-08-11] MEDS ORDERED: EPHEDrine (Pressors)* 50 MG/ML VIAL ONE (08:02)
[2018-08-11 10:29] VITALS: BP 127/83
--- NOTE | 2018-08-11 15:07 | OP ---
DATE OF OPERATION: 08/11/18 [facility] DATE OF : 68 SURGEON: Maki Singh MD UNEMPLOYMENT BENEFITS CLAIMS TAKER: JANIA Hansen. Ms. Mireles did help throughout the procedure with preparation of the leg, wound retraction, manipulation of the knee, and wound closure. ANESTHESIOLOGIST: Dr. Yadav. ANESTHESIA: General. PRE-OP DIAGNOSES: Left knee medial and lateral meniscal tears, mild to moderate osteoarthritis. POST-OP DIAGNOSES: Left knee medial and lateral meniscal tears, mild to moderate osteoarthritis. OPERATIVE PROCEDURE: Left knee arthroscopy with partial medial meniscectomy and partial lateral meniscectomy. SPECIMEN: None. COMPLICATIONS: None. ESTIMATED BLOOD LOSS: Less than 25 cc. BRIEF HISTORY/INDICATION: Mr. Rodriguez is a 48-year-old gentleman who had a twisting injury to his left knee one month ago. He had severe pain and mechanical symptoms. MRI confirmed both medial and lateral meniscal tears. He elected to undergo left knee arthroscopy with partial meniscectomies, possible chondroplasty, possible synovectomy, and possible plica excision. Informed consent was obtained from the patient. He understood the risks of surgery included, but were not limited to bleeding, infection, damage to nearby structures, continued pain, need for further surgery, retear of the meniscus, anesthesia complications, stroke, heart attack, blood clot, and . He wished to proceed. INTRAOPERATIVE FINDINGS: Intraoperatively, the patient was noted to have grade 2 and 3 Outerbridge cartilage changes in the medial and patellofemoral compartments. He had a displaced complex tear of the medial meniscus involving the majority of the body in the white-red zone. He had a linear tear of the lateral meniscus involving the majority of the meniscus body in the white-red zone as well. DESCRIPTION OF PROCEDURE: Mr. Rodriguez was identified in the preanesthesia unit. His left lower extremity was marked as the correct operative side. Informed consent was signed and placed in the chart. The patient was taken to the operating room and placed under general anesthesia without difficulty. Left lower extremity was prepped and draped in the usual sterile fashion. Preop time -out was made to correctly identify the patient side and site. Appropriate perioperative antibiotics were given within 1 hour of incision. A 0.5 cm anterolateral portal incision was made with a #10 blade and carried down to the capsule. As soon as the trocar was introduced, the light and water sources were turned on. A tour of the knee joint was performed. Suprapatellar pouch showed no obvious abnormality. Patellofemoral compartment showed grade 2 and 3 Outerbridge cartilage changes. Medial gutter showed no loose body or plica. Medial compartment showed grade 2 and 3 Outerbridge cartilage changes along the medial femoral condyle. There was a displaced complex tear of the medial meniscus involving the majority of the body. ACL and PCL appeared to be intact. The knee was placed in a [id number] position. There was a long linear tear involving the majority of the the body of the lateral meniscus. No significant degenerative changes. Lateral gutter showed no obvious abnormality. Under direct visualization, a medial portal incision was made. A probe was introduced and a second tour of the knee joint was performed. No additional findings were noted. A straight biter and shaver were used to perform partial medial meniscectomy in the white-red zone. A smooth border of the meniscus was obtained. Further probing of the medial meniscus showed no additional tears. Radiofrequency ablation wand was used to further smooth the edge of the medial meniscus in the white-red zone. The knee was placed in the [id number] position. Straight biter and shaver were used to perform partial lateral meniscectomy. The linear tear was excised. This was mainly in the white-red zone. Further probing of the lateral meniscus showed no additional tears. Radiofrequency ablation wand was used to further smooth the edge of the lateral meniscus. The knee was copiously irrigated with sterile saline. All instruments were carefully removed. Incision was closed with interrupted 3-0 nylon suture. Intraarticular injection of 80 mg of Depo-Medrol and 6 cc of ropivacaine was placed in the knee joint. The incisions were covered with Xeroform, 4x4s, and Webril. Shola wrap and cold pack were placed over this. The patient's anesthesia was reversed without difficulty. He was taken to the PACU in stable condition. Intended weightbearing will be weightbearing as tolerated. Intended DVT prophylaxis will be aspirin. [id number]/[facility] #: [id number] MIKAEL
== END 2018-08-11 10:21 | disposition home or self-care (01) ==
LOC: OR 06:11
PROVIDERS: ATTEND Orthopaedic Surgery Adult Reconstructive Orthopaedic Surgery
DX: S83.242A Other tear of medial meniscus, current injury, left knee, initial encounter (principal); S83.282A Other tear of lateral meniscus, current injury, left knee, initial encounter; X50.0XXA Overexertion from strenuous movement or load, initial encounter; Y92.9 Unspecified place or not applicable; Z72.0 Tobacco use; I49.3 Ventricular premature depolarization
CPT/HCPCS: J0690; J1040; J1100; J2250; J2405; J2704; J2795; J3010